=== PATIENT | male | born 1975 | race Caucasian/White ===

== ENCOUNTER 2019-09-07 13:36 | Emergency (ER) | payer SELFPAY ==
[2019-09-07] MEDS ORDERED: CLINDAMYCIN IV 900MG 900 MG in PREMIX BAG 1 BAG IVPB ONE (13:48)
[2019-09-07] MEDS ORDERED: SODIUM CHLORIDE 0.9% 1000ML 2,000 ML IVS ONE (13:48)
[2019-09-07] MEDS ORDERED: fentaNYL CITRATE INJ 50 MCG/ML 2 ML AMP IV ONE (13:48)
--- NOTE | 2019-09-07 13:52 | ED.PDOC ---
History of Present Illness - General Chief Complaint: ENT Problem Stated Complaint: left ear and neck /jaw pain Time Seen by Provider: 09/07/19 13:41 - History of Present Illness Initial Comments: 44 M presents to ED c/o several days of progressive throat pain and swelling. Pt states he started having left ear pain and but since it has improved and the pain has progressed into his throat. He now endorses associated throat swelling with difficulty swallowing, occasional difficulty breathing only when laying flat, fever with chills. Denies h/o similar sx's. Denies alleviating/aggravating factors. He currently denies associated SOB, CP, n/v/d, inability to flex/extend neck due to throat pain, and/or acute changes in bowels/urination. Pt is otherwise with no other complaints. Pt later notes that he has had an unknown rash to the back of his arms since approximately May of 2019. Allergies/Adverse Reactions: Allergies NO KNOWN ALLERGY Allergy (Verified 09/07/19 13:53) Home Medications: Ambulatory Orders NK 09/07/19 Review of Systems - Review of Systems Constitutional: States: chills, fever. Denies: diaphoresis EENTM: States: ear pain, throat pain, throat swelling. Denies: eye pain, nose pain, nose congestion Respiratory: States: other - occasional dyspnea only when laying flat. Denies: cough, short of breath Cardiology: Denies: chest pain, palpitations Gastrointestinal/Abdominal: Denies: abdominal pain, diarrhea, nausea, vomiting Genitourinary: Denies: dysuria, frequency Musculoskeletal: States: neck pain - at angle of left jaw due to throat pain. Denies: joint pain, muscle pain Skin: Denies: change in color, dryness, rash Neurological: States: other - denies dizziness. Denies: headache Hematologic/Lymphatic: States: swollen glands Family Medical History - Family History Mother Family History: Unknown Physical Exam - Physical Exam General Appearance: Alert, Obvious distress Eye Exam: bilateral normal Ear Exam: bilateral ear: auricle normal, canal normal, TM red - mild injection, greater on left, no erythema Nasal Exam: normal inspection Throat Exam: other - no voice change, difficulty with secretions but able to swallow, no stridor and no respiratory distress, significant left peritonsillar swelling with midline uvula deviation to right and inferior deviation of soft palate floor on posterior left, + erythema without exudates Neck: lymphadenopathy (L) - left sided anterior cervical chain with mild submandibular swelling and TTP, no crepitance Cardiovascular/Respiratory: no M/R/G, normal breath sounds, no respiratory distress, tachycardia, other - regular rhythm, no JVD, no stridor, Abdominal Exam: non-tender, other - bowel sounds wnl Neurologic: alert, normal mood/affect, oriented x 3 Skin Exam: normal color, warm/dry, rash - pustular folliculitis to all 4 extremities greatest to extensor surfaces of BUE and flexor compartments of BLE Progress - Progress Progress: Presents with concern for large left sided peritonsillar abscess. I will obtain labs, imaging, initiate sepsis workup, provide appropriate pharmacotherapy as indicated (including clindamycin, IVF, and decadron), and continue to monitor/reassess. Disposition will depend on labs, imaging, and pt's overall course in ED; however, admission/transfer is expected for ENT drainage. 14:52 Rechecked pt. I have discussed results of labs and imaging along with need for transfer; as he requires surgical management. Pt voices understanding, agrees with plan, and prefers transfer to [facility]. Pt is with improved/controlled pain and remains with intact airway and tolerating secretions. Sepsis re-evaluation performed. VSS. NAD. No clinical concern for volume overload. Vitals improved. Distal pulses intact, borderline tachycardia with regular rhythm. No respiratory distress. No peripheral edema 15:00 I have spoken with the transfer center. They will return page once ENT calls back. 15:03 Page returned. I have consulted with ENT Dr. Webster and discussed pt's case in ED along with current findings. She agrees pt needs surgical drainage and for transfer. I then consulted with ED physician Madelaine and discussed pt's case in ED along with current findings. They agree with pt transfer. - Results/Orders Results/Orders: 09/07/19 13:48 Sodium Chloride 0.9% 1000ML [Ns 1000 ml] 2,000 ml IVS ONCE 09/07/19 13:49 Hold Metformin x 48Hrs [id number] 09/07/19 14:25 BLOOD CULTURE Stat Laboratory Results - last 24 hr 09/07/19 09/07/19 09/07/19 13:57 13:57 13:57 WBC 11.9 H RBC 5.43 Hgb 15.8 Hct 44.4 MCV 81.9 MCH 29.0 MCHC 35.5 RDW 14.8 H Plt Count 233 MPV 8.2 Absolute Neuts (auto) Not Reportable Absolute Lymphs (auto) Not Reportable Absolute Monos (auto) Not Reportable Absolute Eos (auto) Not Reportable Neutrophils % Not Reportable Neutrophils % (Manual) 75.0 Lymphocytes % Not Reportable Lymphocytes % (Manual) 16.0 Monocytes % Not Reportable Monocytes % (Manual) 8.0 Eosinophils % Not Reportable Basophils % Not Reportable Band Neutrophils 1.0 Platelet Estimate Normal Normal RBC Morphology Normal rbc morph Sodium 124 L Potassium 4.1 Chloride 94 L Carbon Dioxide 18 L Anion Gap 16.1 BUN 12 Creatinine 0.66 BUN/Creatinine Ratio 18.2 Random Glucose 288 H Serum Osmolality 259.9 L Lactic Acid 1.4 Calcium 8.8 Total Bilirubin 1.2 H AST 18 ALT 41 Alkaline Phosphatase 105 Serum Total Protein 7.0 Albumin 3.4 Globulin 3.6 H Albumin/Globulin Ratio 0.9 L EXAM DESCRIPTION: Soft Tissue Neck w/Contrast CLINICAL HISTORY: 44 years Male, left peritonsillar abscess TECHNIQUE: This exam was performed according to our departmental dose-optimization program, which includes automated exposure control, adjustment of the mA and/or kV according to patient size and/or use of iterative reconstruction technique. COMPARISON: None at time of initial interpretation. FINDINGS: Right maxillary sinus disease. The visualized brain is unremarkable. The parotid and submandibular glands are unremarkable. Vasculature is normal. Visualized lung apices are clear. Bilateral cervical lymph nodes. A reference left cervical lymph node measures 1.7 cm series 2 image 38. A reference right cervical lymph node measures 1.0 cm series 2 image 34. The thyroid and trachea are normal. Hypertrophied left palatine tonsil with central low attenuation. This area measures 3.3 x 3.0 cm series 2 image 25. There is fluid and edema extending caudally in the prevertebral soft tissues to the level of C5 in the retropharyngeal space on the left. IMPRESSION: 1. Left palatine tonsil abscess, with fluid and edema extending caudally in the retropharyngeal space worrisome for a retropharyngeal abscess component to the level of C5. 2. Cervical adenopathy likely reactive. Findings discussed with Dr. Forrester at 2:51 PM 09/07/2019. Electronically signed by: Efra Amor MD 09/07/2019 2:53 PM CDT Departure - Departure Clinical Impression: Peritonsillar abscess, Retropharyngeal abscess, Hyponatremia, Pustular folliculitis Diabetes type 2, uncontrolled Qualifiers: Glycemic state: with hyperglycemia Qualified Code(s): E11.65 - Type 2 diabetes mellitus with hyperglycemia Time of Disposition: 15:00 Disposition: Transfer to Hospital Condition: Good Departure Forms: ED Discharge - Pt. Copy, Patient Portal Self Enrollment Home Medications: Ambulatory Orders NK 09/07/19 Transfer to Outside Facility - Transfer Information Decision to Transfer Date: 09/07/19 Decision to Transfer Time: 15:10 Reason for Transfer: required specialist not available Accepting Facility: [facility]
--- NOTE | 2019-09-07 14:54 | CT ---
EXAM DESCRIPTION: Soft Tissue Neck w/Contrast CLINICAL HISTORY: 44 years Male, left peritonsillar abscess TECHNIQUE: This exam was performed according to our departmental dose-optimization program, which includes automated exposure control, adjustment of the mA and/or kV according to patient size and/or use of iterative reconstruction technique. COMPARISON: None at time of initial interpretation. FINDINGS: Right maxillary sinus disease. The visualized brain is unremarkable. The parotid and submandibular glands are unremarkable. Vasculature is normal. Visualized lung apices are clear. Bilateral cervical lymph nodes. A reference left cervical lymph node measures 1.7 cm series 2 image 38. A reference right cervical lymph node measures 1.0 cm series 2 image 34. The thyroid and trachea are normal. Hypertrophied left palatine tonsil with central low attenuation. This area measures 3.3 x 3.0 cm series 2 image 25. There is fluid and edema extending caudally in the prevertebral soft tissues to the level of C5 in the retropharyngeal space on the left. IMPRESSION: 1. Left palatine tonsil abscess, with fluid and edema extending caudally in the retropharyngeal space worrisome for a retropharyngeal abscess component to the level of C5. 2. Cervical adenopathy likely reactive. Findings discussed with Dr. Forrester at 2:51 PM 09/07/2019. Electronically signed by: Efra Amor MD 09/07/2019 2:53 PM CDT
[2019-09-07] MEDS ORDERED: DEXAMETHASONE INJ 10 MG/ML VIAL IV ONE (15:07)
[2019-09-07 15:36] VITALS: BP 139/83; TEMP 98.8; O2SAT 99
== END 2019-09-07 15:38 | disposition short-term general hospital (02) ==
LOC: ER 13:36
DX: J36 Peritonsillar abscess (principal); L01.02 Bockhart's impetigo; E87.1 Hypo-osmolality and hyponatremia; E11.65 Type 2 diabetes mellitus with hyperglycemia
CPT/HCPCS: 36415; 70491; 80053; 83605; 85025; 87040; J1100; J3010; J3490; J7030